=== PATIENT | female | born 1985 | race Caucasian/White ===

== ENCOUNTER → 2017-01-02 | Outpatient (CLI) | payer BC, OTHER ==
[~2017-01-02] MED LIST: LXPUNK PO; MTR600X PO; PRENTAB26 PO
== END | disposition home or self-care (01) ==
LOC: C.PAPS 14:25
PROVIDERS: ATTEND Physician Assistant
DX: Z01.419 Encounter for gynecological examination (general) (routine) without abnormal findings (principal)

== ENCOUNTER → 2017-09-07 | Outpatient (CLI) | payer OTHER ==
[~2017-09-07] MED LIST changes: +BUSP15TA70 PO; +ESCI1TAB10 PO; +LORA-741 PO; +OXYC-57 PO
--- NOTE | 2017-09-07 12:52 | MAMMOGRAPHY REPORT ---
UNILATERAL LEFT DIGITAL DIAGNOSTIC MAMMOGRAM TOMOSYNTHESIS WITH CAD AND TARGETED LEFT ULTRASOUND: CLINICAL HISTORY: The patient has had a palpable lump in the left breast which was evaluated in 2013; she underwent fine-needle aspiration of the lump which yielded benign pathology. The patient does n ot feel that the lump has changed in size over that time but she has a new doctor who wanted the area reevaluated. TECHNIQUE: Breast tomosynthesis in addition to standard 2D mammography was performed. Current study was also evaluated with a Computer Aided Detection (CAD) system. Left CC and MLO 2-D and tomosynthes is images were obtained. COMPARISON: Comparison is made to exams dated: 04/23/2015 ultrasound, 04/13/2014 ultrasound, 04/13/2014 m ammogram, 08/31/2009 consultation, and 08/31/2009 ultrasound - [facility]. BREAST COMPOSITION: The tissue of the left breast is heterogeneously dense, which may obscure small masses. FINDINGS: A triangle marker connell the site of the palpable lump in the left lower inner quadrant. I n the region of the marker there is an area of architectural distortion in the left lower outer quad rant, best seen on the tomosynthesis images. The area is ill-defined and therefore difficult to alberto ure but the area of distortion measures at least 3.5 cm on the cc tomosynthesis images. The remainde r of the left breast demonstrates no suspicious masses, calcifications, or areas of architectural dis tortion. Targeted ultrasound was performed of the area of the palpable lump pointed out by the patient in the left 8:00 breast as well as throughout the left lower inner quadrant. The breast tissue is markedly heterogeneous on ultrasound in this region. One possible ill-defined area of hypoechoic shadowing is seen within the left breast at 8:00, 3 cm from the nipple, which is ill-defined and therefore diffic ult to measure but measures approximately 6 x 4 mm. A few small anechoic benign cysts were seen in t he region, including 2 adjacent 3 mm cysts in the left breast at 8:00, 3 cm from the nipple. It is u nclear if this shadowing region may correspond with the architectural distortion. Given the presence of architectural distortion, tissue sampling is recommended. Given that the findi ng is best seen mammographically, tomosynthesis stereotactic biopsy is recommended. The differential includes radial scar or malignancy. A fine-needle aspiration was performed of the palpable lump in 2013 which yielded benign pathology. Given the prior benign fine-needle aspiration and given that th e lump has not clinically changed for years, a radial scar is favored. IMPRESSION: ACR BI-RADS CATEGORY 4: SUSPICIOUS, TARGETED ULTRASOUND ACR BI-RADS CATEGORY 4: SUSPICIO US 1. Focal architectural distortion in the left lower inner quadrant mammographically at the site of th e palpable lump pointed out by the patient. Ill-defined hypoechoic shadowing region is seen within t he left 8:00 breast on ultrasound which may correspond with the distortion. The finding is indetermi nant and recommend tomosynthesis stereotactic biopsy for further evaluation. The differential includ es radial scar versus malignancy; given the prior benign fine-needle aspiration and given that the maricel mp has not clinically changed for years, a radial scar is favored. 2. At the time of the biopsy, recommend obtaining mammograms of the right breast as these were not p erformed today. A phone call was made to the physician's office to confirm faxed results were received. The patient has been verbally notified of the results. She tentatively scheduled the biopsy before leaving the [facility]. Approximately 10% of breast cancers are not detected with mammography. A negative mammographic report should not delay biopsy if a clinically suggestive mass is present. Chuyita Rios M.D. ah/:09/07/2017 11:51:19 Linoleum Floor Installer: Jorge DAILEY)([place]), [facility] letter sent: Abnormal 4/5 BI-RADS Code: ACR BI-RADS Category 4: Suspicious Ultrasound BI-RADS: ACR BI-RADS Category 4: Suspici ous
== END | disposition home or self-care (01) ==
LOC: C.MAMM 09:47
PROVIDERS: ATTEND Physician Assistant
DX: N63.20 Unspecified lump in the left breast, unspecified quadrant (principal)

== ENCOUNTER → 2017-09-26 | Outpatient (CLI) | payer OTHER ==
[~2017-09-26] MED LIST changes: -BUSP15TA70 PO; -ESCI1TAB10 PO; -LORA-741 PO; -OXYC-57 PO
--- NOTE | 2017-09-26 13:26 | Discharge Instructions ---
Discharge Instructions Procedure Procedure Date: Sep 26, 2017. Reason for visit: Left Distortion. Discharge Discharge Date: Sep 26, 2017. Discharge Diagnosis: post left breast stereotactic tomosynthesis guided biopsy Instructions Activity Recommendations: Additional Limitations (see below) Return to School/Work: no limitations Recommended Home Diet: No Limitations Provider Instructions: ACTIVITY RECOMMENDATIONS: * No lifting, pushing, pulling or exercising the affected side for three days. RETURN TO SCHOOL/WORK: * You may return to work/school after the procedure, but do not perform any strenuous activities for 24 to 48 hours. MEDICATIONS: * Tylenol (two 325 mg) every four to six hours if needed for mild pain (if not allergic to Tylenol). DIET: * Resume previous diet. SPECIAL CARE INSTRUCTIONS: * Keep biopsy site dry for 24 hours. May shower after 24 hours, but do not soak (bathe) incision. * May remove Tegaderm (plastic patch) tomorrow AFTER showering. * Leave the steri-strips on for one week. Allow the steri-strips to fall off by themselves. If not off after one week, you may remove them. You may place a Bandaid crosswise over the strips, if desired. * Apply ice 10 minutes on and 10 minutes off as needed. * Wear a bra at bedtime to sleep more comfortably for 2-3 days. * Your referring physician should have the results after approximately 5 to 7 business days. * Call for unusual bleeding, fever, drainage, etc or if you have any questions call [phone] during normal business hours or after hours call Dr Morocho, . FOLLOW UP VISIT: Follow-up with Referring Physician as scheduled. Allergies Coded Allergies: Clarithromycin (Verified Allergy, Unknown, 10/15/09) Karen John Recommendations: Call your doctor if: * Temperature above 101 degrees * Pain not relieved by pain medicine ordered * There is increased drainage or redness from any incision * You have any unanswered questions or concerns. Your Doctors Instructions noted above were prepared by provider Martha Morocho. Patient Signature Section: Patient Instructions Signature Page Sulma Clark Patient (or Guardian) Signature/Date: I have read and understand the instructions given to me by my caregivers. Caregiver/RN/Doctor Signature/Date: The above-named patient and/or guardian has received patient instructions on this date. + Original Patient Signature Page (only) stays with chart. Please make copy for patient.
--- NOTE | 2017-09-26 15:08 | MAMMOGRAPHY REPORT ---
STEREOTACTIC GUIDED BIOPSY LEFT BREAST: 09/26/2017 CLINICAL HISTORY: Status post stereotactic tomosynthesis guided biopsy of a focal area of architectur al distortion in the lower inner left breast. COMPARISON: Comparison is made to exams dated: 09/07/2017 ultrasound, 09/07/2017 mammogram, 5 ultrasound, 04/13/2014 ultrasound, 04/13/2014 mammogram, and 08/31/2009 consultation - [facility]. PATIENT CONSENT: After explaining the risks, benefits and alternatives of the procedure to the patien t, informed consent was obtained both verbally and in writing. Specific risks include: Bleeding, inf ection, puncture of adjacent structure, pain, nontarget biopsy, sampling error, metal allergy and med ication reaction. PROCEDURE DESCRIPTION: A time-out was performed and the left breast was confirmed as the site of biop sy. The patient was placed prone on the stereotactic biopsy table and the breast was placed in CC fro m below compression. A client insights consultant tomosynthesis image was obtained that demonstrated focal architectural d istortion in question, which is amenable to stereotactic tomosynthesis biopsy. The geometric center of the distortion was targeted utilizing the coordinates obtained by the computer. The skin was prep ped with Betadine. 1% Lidocaine with and without epinipherine was administered as local anesthesia. A small skin incision was made. Through the incision, the needle was inserted to the depth determined by the computer. 10 samples were obtained using a Bventsiva 9-gauge vacuum-assisted biopsy device. A dumbbell shaped biopsy marker clip was placed at the site of the biopsy and a post biopsy tomosyn thesis image was performed with the patient still on the table which demonstrates the air pocket with in the center of the distortion. There was no immediate complication. Hemostasis was achieved after several minutes of manual compression. The samples were sent to pathology in an appropriately labele d container. Postprocedure left CC and ML tomosynthesis images were obtained. There is a new biopsy marker clip a nd no significant hematoma near the geometric center of the area of distortion in the left lower inne r quadrant. IMPRESSION: STEREOTACTIC GUIDED BIOPSY Status post stereotactic tomosynthesis guided biopsy of a focal area of architectural distortion in t he left lower inner quadrant, with biopsy marker placed at the site. The patient will receive notification of the biopsy results from her referring physician. Martha arita/:09/26/2017 13:42:07 Construction Equipment Mechanic: Karolyn Sanford, [facility]
--- NOTE | 2017-09-26 15:11 | MAMMOGRAPHY REPORT ---
UNILATERAL LEFT DIGITAL DIAGNOSTIC MAMMOGRAM TOMOSYNTHESIS: 09/26/2017 CLINICAL HISTORY: Status post stereotactic tomosynthesis guided biopsy of a focal area of architectur al distortion in the lower inner quadrant of the left breast. Please refer to the report from left breast stereotactic tomosynthesis guided biopsy performed at the same time for full detail. IMPRESSION: POST PROCEDURE IMAGING FOR MARKER PLACEMENT Please refer to the report from left breast stereotactic tomosynthesis guided biopsy performed at the same time for full detail. Approximately 10% of breast cancers are not detected with mammography. A negative mammographic report should not delay biopsy if a clinically suggestive mass is present. Martha Morocho M.D. ay/:09/26/2017 13:24:52 Director Personal: Karolyn Sanford, [facility] BI-RADS Code: Post Procedure Imaging For Marker Placement
== END | disposition home or self-care (01) ==
LOC: C.MAMM 12:40
PROVIDERS: ATTEND Physician Assistant
DX: N60.92 Unspecified benign mammary dysplasia of left breast (principal); R92.0 Mammographic microcalcification found on diagnostic imaging of breast; N64.89 Other specified disorders of breast; N60.22 Fibroadenosis of left breast

== ENCOUNTER → 2017-11-16 | Day surgery (SDC) | payer OTHER ==
[2017-10-26 15:27] VITALS: Ht 152.4 cm; Wt 71.4 kg
[~2017-11-16] VITALS: Ht 152.4 cm; Wt 71.4 kg
[~2017-11-16] MED LIST changes: +ATROPINE SULFATE 0.1 MG/ML 5ML SYR IV PRN; +BUPIVACAINE 0.5 % 5 MG/1 ML MPF 30ML VIAL ONE; +BUSP15TA70 PO; +CEFAZOLIN 2000MG IV PUSH 15 ML IV SCH; +DEXAMETHASONE SOD INJ 4 MG/ML VIAL ONE; +ESCI1TAB10 PO; +EpHEDrine SULFATE INJ 50 MG/ML AMP IV PRN; +FENTANYL CITRATE INJ 50 MCG/1 ML 2 ML VIAL IV PRN; +FENTANYL CITRATE INJ 50 MCG/1 ML 2 ML VIAL ONE; +HYDROmorphone INJ 1 MG/ML SYR IV PRN; +KETOROLAC TROMETHAMINE 30 MG/ML VIAL IV. PRN; +LACTATED RINGER'S 1000ML 1,000 ML IV SCH; +LIDOCAINE HCL 2% 2 ML VIAL (20MG/ML) ONE; +LORA-741 PO; -LXPUNK PO; +MIDAZOLAM HCL 1 MG/ML 2ML VIAL ONE; -MTR600X PO; +MoRPHine SULFATE 2 MG/ML CARP IV PRN; +MoRPHine SULFATE 4 MG/ML 1 ML CARP\\VIAL IV PRN; +ONDANSETRON INJ 2 MG/ML 2 ML VIAL IV PRN; +ONDANSETRON INJ 2 MG/ML 2 ML VIAL ONE; +OXYC-57 PO; +OXYCODONE/ACETAMINOPHEN 5-325 TAB PO PRN; -PRENTAB26 PO; +PROPOFOL IV EMULSION 10 MG/ML 20 ML VIAL IV ONE; +SODIUM CHLORIDE 0.9% 1000ML 1,000 ML IV SCH
--- NOTE | 2017-11-16 09:41 | History & Physical Bridge - SC ---
H&P Re-Evaluation Bridge Note: I have examined the patient, reviewed the History & Physical and in the interval since the performance of the History & Physical I have noted the following changes of clinical significance: No changes noted
--- NOTE | 2017-11-16 10:58 | [facility] Post Operative Brief Note ---
Immediate Operative Summary Operative Date Nov 16, 2017. Pre-Operative Diagnosis Left Breast Mass Post-Operative Diagnosis same Procedure(s) Performed Left Breast Wire Localized Excisional Biopsy Surgeon Dr. Mora Tabber Surgeon(s) none Estimated Blood Loss 3ml Findings Consistent with Post-Op Diagnosis Radiographic confirmation of excision of wire, clip Specimens A) Left Breast Mass out at 1042 Short suture superior, long suture lateral, Double suture deep. Sent to [facility] Drains None Anesthesia Type General Complication(s) none Disposition Accompanied Pt To Recovery: no Disposition: Recovery Room / PACU
--- NOTE | 2017-11-16 11:03 | Discharge Instructions-SurgCtr ---
Discharge Instructions Date of Service Nov 16, 2017. Visit Reason for Visit: Left Breast Mass Discharge Discharge Diagnosis / Problem: Left breast mass Discharge Goals Goal(s): Decrease discomfort Activity Recommendations Activity Limitations: resume your previous activity Lifting Limitations: gradually increase as tolerated Exercise/Sports Limitations: as tolerated Shower/Bathe: tomorrow Driving or Machine Use: resume 1 day after discharge Anesthesia . Post Anesthesia Instructions: If you have had General Anesthesia or IV Sedation: * Do not drive today. * Resume driving when surgeon permits. * Do not make important decisions or sign legal documents today. * Call surgeon for: 1. Temperature elevations greater than 101 degrees F. 2. Uncontrollable pain. 3. Excessive bleeding. 4. Persistent nausea and vomiting. 5. Medication intolerance (nausea, vomiting or rash). * For nausea and vomiting use only clear liquids such as: tea, soda, bouillon until nausea subsides, then gradually increase diet as tolerated. * If you have any concerns or questions, call your surgeon's office. If physician is unavailable and it is an emergency, call 911 or go to the nearest emergency room. . Instructions / Follow-Up Instructions / Follow-Up Follow up in 1-2 weeks or as previously scheduled. Call [phone] for an appointment. Call the surgery clinic with questions or concerns. Diet Recommendations Home Diet: resume previous diet Procedures Procedures Performed: Left Breast Wire Localized Excisional Biopsy Pending Studies Studies pending at discharge: yes List of pending studies: Pathology results Medical Emergencies . Who to Call and When: Medical Emergencies: If at any time you feel your situation is an emergency, please call 911 immediately. . Non-Emergent Contact Non-Emergency issues call your: Surgeon . . "Provider Documentation" section prepared by Glenroy Mora. . [place] Drug Monitoring Program Search Results: no issues identified
--- NOTE | 2017-11-16 11:07 | [facility] Operative Report ---
Operative Report Operative Date Nov 16, 2017. Pre-Operative Diagnosis Left Breast Mass Post-Operative Diagnosis same Procedure(s) Performed Left Breast Wire Localized Excisional Biopsy Surgeon Dr. Mora Hematology Specialist Surgeon(s) none Estimated Blood Loss 3ml Findings Radiographic confirmation of excision of wire, clip Specimens A) Left Breast Mass out at 1042 Short suture superior, long suture lateral, Double suture deep. Sent to [facility] Drains None Anesthesia Type General Complication(s) none Disposition no Recovery Room / PACU Indications 32-year-old female with left breast mass, core needle biopsy showed radial scar , plan for left breast wire localized excisional biopsy. The risks of the procedure were discussed, all questions were answered, and the patient agreed to proceed with surgery as planned. Description of Procedure The patient had a localization wire placed in radiology prior to surgery. The films were reviewed for incisional planning. The patient was properly identified, consented, and taken to the operating room where she was placed in the supine position. General anesthesia was induced. SCDs and a safety belt were placed. Preoperative antibiotics were administered. The patient's bilateral chest was prepped and draped in the standard sterile fashion. Surgical timeout was performed and all parties were in agreement that this was the correct patient and procedure to be performed and we continued as planned. A transverse incision was made on the medial portion of the left breast overlying the wire and deepened down through the subcutaneous tissue with electrocautery. Flaps were raised in all directions. The breast mass was circumferentially dissected, excised, and passed off the table as specimen. The specimen was oriented. A mammogram was performed of the specimen in radiology and confirmed excision of the wire, clip, and the majority of the previously imaged abnormality. The wound was irrigated and hemostasis was confirmed. The skin was closed with interrupted 3-0 Vicryl deep dermal sutures , followed by 4-0 Monocryl running subcuticular suture. Dermabond was placed over the wound. The patient was extubated in the operating room and taken to the PACU where she recovered without apparent incident. All sponge, instrument and needle counts were correct at the conclusion of the procedure. The patient tolerated the procedure well. I attest to the content of the Intraoperative Record and any orders documented therein. Any exceptions are noted below.
[2017-11-16 11:52] VITALS: TEMP 36.6
--- NOTE | 2017-11-16 12:08 | Anesthesiology Progress Note ---
Anesthesia Post Op Note Date & Time Nov 16, 2017 at 12:08 Vital Signs Pain Intensity: 0 Vital Signs Past 12 Hours Date Time Temp Pulse Resp B/P (MAP) Pulse Ox O2 Delivery O2 Flow Rate FiO2 11/16/17 11:52 36.6 81 16 126/76 (93) 99 Room Air 11/16/17 11:35 36.7 87 12 112/72 98 Room Air 11/16/17 11:31 120/65 11/16/17 11:30 94 14 98 11/16/17 11:30 93 14 11/16/17 11:25 90 19 118/72 100 11/16/17 11:25 89 19 11/16/17 11:21 115/77 11/16/17 11:20 95 17 100 11/16/17 11:20 94 17 11/16/17 11:15 95 17 122/74 100 11/16/17 11:15 95 17 11/16/17 11:10 99 17 11/16/17 11:10 96 17 120/87 100 11/16/17 11:05 92 11/16/17 11:05 92 122/73 96 11/16/17 11:05 37.0 92 12 122/73 96 Mask 6 11/16/17 07:43 36.7 97 18 130/88 (102) 99 Room Air Notes Mental Status: alert / awake / arousable, participated in evaluation Pt Amnestic to Procedure: Yes Nausea / Vomiting: adequately controlled Pain: adequately controlled Airway Patency, RR, SpO2: stable & adequate BP & HR: stable & adequate Hydration State: stable & adequate Anesthetic Complications: no major complications apparent
[2017-11-16 12:13] VITALS: BP 115/70; PULSE 80; O2SAT 94
--- NOTE | 2017-11-16 13:54 | MAMMOGRAPHY REPORT ---
SPECIMEN LEFT BREAST: 11/16/2017 CLINICAL HISTORY: Status post left breast surgical excision. COMPARISON: Comparison is made to exams dated: 09/26/2017 mammogram, 09/26/2017 stereotactic biopsy, 1 ultrasound, 09/07/2017 mammogram, 04/23/2015 ultrasound, and 04/13/2014 ultrasound - [facility]. Findings: A radiograph was performed of the left breast surgical specimen. The localized biopsy clip and distortion is seen within the specimen. The intact needle localization wire is also present. R esults were discussed with Dr. Mora over the telephone. IMPRESSION: SPECIMEN The imaged specimen contains the preoperatively-localized abnormality. Chuyita Rios M.D. ah/:11/16/2017 12:06:08 Mottler Operator: Jorge DAILEY)(M), [facility]
--- NOTE | 2017-11-16 13:54 | MAMMOGRAPHY REPORT ---
NEEDLE LOCALIZATION LEFT BREAST: 11/16/2017 CLINICAL HISTORY: Biopsy-proven radial scar in the left lower inner quadrant. PROCEDURE DESCRIPTION: With mammographic guidance, aseptic technique, and 1% lidocaine as the local a nesthetic, the architectural distortion and associated biopsy marker clip were localized with a 5 cm Wheeler II needle. The path of approach was medial. The biopsy marker clip and architectural distor tion are located along the distal portion of the wire, centered at the alfredo. The patient had some li ghtheadedness during the procedure but her symptoms had improved after the procedure was completed. COMPARISON: Comparison is made to exams dated: 09/26/2017 mammogram, 09/07/2017 mammogram, 04/13/2014 m ammogram, 08/31/2009 consultation, 04/13/2014 ultrasound, and 04/23/2015 ultrasound - [facility]. IMPRESSION: NEEDLE LOCALIZATION Mammographic-guided needle localization of the architectural distortion and associated biopsy clip in the left lower inner quadrant. Chuyita Rios M.D. ah/:11/16/2017 08:28:19 Archeology Faculty Member: Jorge MCCLELLAN(R)(M), [facility]
== END | disposition home or self-care (01) ==
LOC: X.SURG 07:28
PROVIDERS: ATTEND Surgery
DX: N60.22 Fibroadenosis of left breast (principal); D24.2 Benign neoplasm of left breast; N62 Hypertrophy of breast; R92.0 Mammographic microcalcification found on diagnostic imaging of breast; Z88.1 Allergy status to other antibiotic agents; E66.9 Obesity, unspecified; Z68.28 Body mass index [BMI] 28.0-28.9, adult; Z98.818 Other dental procedure status; Z83.49 Family history of other endocrine, nutritional and metabolic diseases; Z82.0 Family history of epilepsy and other diseases of the nervous system